=== PATIENT | female | born 1965 | race Caucasian/White ===

== ENCOUNTER → 2022-10-17 | Outpatient (CLI) | payer OTHER | END | disposition home or self-care (01) | LOC: RAH 10:05 | PROVIDERS: ATTEND Nurse Practitioner Family | DX: Z12.31 Encounter for screening mammogram for malignant neoplasm of breast (principal) | CPT/HCPCS: 77067 ==

== ENCOUNTER 2024-04-28 12:21 | Emergency (ER) | payer BC, OTHER ==
[~2024-04-28] VITALS: Ht 157.5 cm; Wt 62.1 kg
[2024-04-28 12:53] VITALS: TEMP 99.3
--- NOTE | 2024-04-28 13:45 | EKG ---
[facility] Test Date: 2024-04-28 Test Time: 13:43:13 Pat Name: TODD FLETCHER Department: ED Room: Gender: F Aged Or Disabled Carer: [id number] : 1965 Requested By: SHANNON BENJAMIN Order Number: [id number] Reading MD: Clifford Mayorga Measurements Intervals [place] Rate: 78 P: 57 NM: 153 QRS: 36 QRSD: 82 T: 49 QT: 378 QTc: 431 Interpretive Statements Sinus rhythm No previous ECG available for comparison Electronically Signed On 04-28-2024 15:10:50 [employer] by Clifford Mayorga Please click the below link to view image of tracing.
[2024-04-28 14:39] LABS: BASOPHILS # (AUTO) 0.04 K/uL (0.00-0.20); BASOPHILS % (AUTO) 0.6 % (0.0-5.0); CREATININE 0.8 mg/dL (0.5-1.0); EOSINOPHILS # (AUTO) 0.03 K/uL (0.00-0.70); EOSINOPHILS % (AUTO) 0.4 % (0.0-8.0); HEMATOCRIT 41.5 % (36-48); IMMATURE GRANULOCYTE ABSOLUTE 0.02 K/uL (0-1); LYMPHOCYTES # (AUTO) 1.7 K/uL (1.0-4.8); MEAN CORPUSCULAR HEMOGLOBIN 29.8 pg (27.0-33.0); MEAN CORPUSCULAR HGB CONC 33.5 g/dL (32.0-36.0); MEAN CORPUSCULAR VOLUME 88.9 fL (79-99); MONOCYTES # (AUTO) 0.6 K/uL (0.1-1.0); NEUTROPHILS # (AUTO) 4.9 K/uL (1.8-7.7); NEUTROPHILS % (AUTO) 67.7 % (40.0-77.0); PLATELET COUNT (AUTO) 285 K/uL (130-400); POTASSIUM 3.4 mmol/L (3.5-5.1); RED BLOOD CELL COUNT(AUTO) 4.67 MIL/uL (4.00-5.50); RED CELL DISTRIBUTION WIDTH 13.5 % (11.0-15.5); WHITE BLOOD COUNT (AUTO) 7.2 K/uL (4.8-10.8)
--- NOTE | 2024-04-28 14:57 | ERN ---
General Chief Complaint: Hypertension Stated Complaint: HIGH BLOOD PRESSURE Time Seen by MD: 12:27 History of Present Illness Initial Comments 59-year-old female, history of TIA, asthma, COPD, dyslipidemia, presents for body aches and hypertension. Patient forgot her flu and RSV vaccines yesterday. She reports that today she feels all-over body aches and chills. She took her blood pressure at a pharmacy was 160/101 problem to go to come here. On arrival here her blood pressure is stable. She appears uncomfortable due to body aches but is otherwise nontoxic. She does report mild cough. Allergies: Coded Allergies: Penicillins (Unverified Allergy, Unknown, 04/28/24) Past Medical History Past Medical History: Anxiety, Depression, GERD Past Surgical History: Appendectomy, Hysterectomy, Other, Surgical History Other: HERNIA ROS Dictation CONSTITUTIONAL: Weakness and body aches EENT: No eye pain, no blurred vision, no tearing, no double vision, no ear pain, no ear discharge, no nose pain, no nasal congestion, no throat pain, no throat swelling, no mouth pain. RESPIRATORY: No cough, no orthopnea, no SOB, no stridor, no wheezing. CARDIOVASCULAR: No chest pain, no edema, no palpitations, no syncope. GASTROINTESTINAL/ABDOMINAL: No abdominal pain, no constipation, no diarrhea, no nausea, no vomiting. GENITOURINARY: No abnormal discharge, no dysuria, no frequent urination, no hematuria. No complaints of pain in the genitals. MUSCULOSKELETAL: No back pain, no gout, no joint pain, no joint swelling, no muscle pain, no muscle stiffness, no neck pain. INTEGUMENTARY: No change in color, no change in hair/nails, no dryness, no lesion, no lumps, no rash. NEUROLOGICAL/PSYCH: No anxiety, not depressed, no emotional problem, no headache, no numbness, no pre-existing deficit, no history of seizures, no tremors, no weakness. HEMATOLOGIC/LYMPHATIC: Not anemic, no history of blood clots, no apparent bleeding, no bruising, glands not swollen. All Systems Negative, Except as Noted. Physical Exam Physical Exam Dictation VITAL SIGNS: Reviewed. GENERAL APPEARANCE: Alert, oriented x3, no acute distress, EYES: PERRL, pink conjunctivas, eyelid no trauma, anterior chamber clear. EARS: Pinnas intact and no signs of trauma or erythema. Ear canals clear and no discharge. TMs no erythema. NOSE: No discharge, no bleeding. OROPHARYNX: Mouth normal, teeth no caries, tongue pink. Pharynx clear, no erythema. Tonsils no exudates, no abscesses noted. Mucous membrane moist. NECK: Supple, non-tender, no thyromegaly, no masses, no JVD, no bruits. BREAST: Deferred. CHEST: No tenderness, no crepitus, no paradoxical movement, no retractions. LUNGS: Clear, well-ventilated, symmetric, no rales, no wheezing, no rhonchi, no stridor, good breath sounds bilaterally. HEART: Regular rate, regular rhythm, no murmur, no gallops. VASCULAR: No peripheral edema. ABDOMEN: Soft, positive bowel sounds, nondistended, no guarding, nontender, no rebound, no masses no hepatomegaly, no splenomegaly, no Vazquez's sign, no hernias. RECTAL: Deferred. GENITAL: Deferred. NEUROLOGICAL: Normal speech, gross motor function intact, gross sensory function intact. MUSCULOSKELETAL: Neck nontender, full range of motion, back nontender, full range of motion. EXTREMITIES: Nontender, full range of motion. SKIN: Color pink, dry, no turgor, no rash, no lacerations, no abrasions, no contusions. LYMPHATICS: Deferred. Results Laboratory and Microbiology Lab and Micro Result Laboratory Tests Test 04/28/24 14:01 White Blood Count 7.2 K/uL (4.8-10.8) Red Blood Count 4.67 MIL/uL (4.00-5.50) Hemoglobin 13.9 g/dL (12.0-16.0) Hematocrit 41.5 % (36-48) Mean Corpuscular Volume 88.9 fL (79-99) Mean Corpuscular Hemoglobin 29.8 pg (27.0-33.0) Mean Corpuscular Hemoglobin Concent 33.5 g/dL (32.0-36.0) Red Cell Distribution Width 13.5 % (11.0-15.5) Platelet Count 285 K/uL (130-400) Mean Platelet Volume 9.5 fL (7.5-10.5) Immature Granulocyte % (Auto) 0.3 % (0-1) Neutrophils (%) (Auto) 67.7 % (40.0-77.0) Lymphocytes (%) (Auto) 23.0 % (21.0-51.0) Monocytes (%) (Auto) 8.0 % (3.0-13.0) Eosinophils (%) (Auto) 0.4 % (0.0-8.0) Basophils (%) (Auto) 0.6 % (0.0-5.0) Neutrophils # (Auto) 4.9 K/uL (1.8-7.7) Lymphocytes # (Auto) 1.7 K/uL (1.0-4.8) Monocytes # (Auto) 0.6 K/uL (0.1-1.0) Eosinophils # (Auto) 0.03 K/uL (0.00-0.70) Basophils # (Auto) 0.04 K/uL (0.00-0.20) Absolute Immature Granulocyte (auto 0.02 K/uL (0-1) Nucleated Red Blood Cells 0.0 % (0.0-0.19) Sodium Level 136 mmol/L (136-145) Potassium Level 3.4 mmol/L (3.5-5.1) L Chloride Level 100 mmol/L (101-111) L Carbon Dioxide Level 28 mmol/L (21-32) Blood Urea Nitrogen 7 mg/dL (7-18) Creatinine 0.8 mg/dL (0.5-1.0) Glomerular Filtration Rate Calc 84 mL/min (>90) Random Glucose 91 mg/dL (70-105) Total Calcium 8.7 mg/dL (8.5-10.1) Total Creatine Kinase 55 U/L (21-232) Troponin I High Sensitivity 4.2 ng/L (4-50) MDM CC: Body aches and discomfort after a vaccine Historian: Patient Comorbidities: COPD, asthma, dyslipidemia Limitations by social determinants of health: None Vital signs: 144/90, otherwise stable. Clinical exam is nontoxic EKG: NSR, rate of78 normal axis good R progression intervals are stable no STEMI. Interpreted by me. Labs (independently interpreted by me): CBC is normal, BNP is normal. Troponin is normal. I suspect that the patient's symptoms are due to a vaccine reaction. I do not see any signs of ACS, PE, significant infection. She has a stable vital signs and a normal white count. This point in time I think it is safe to give the patient a dose of Toradol and Solu-Medrol on DC with the NSAID. I suspect she is having symptoms relating to her recent vaccination. Patient is agreeable to this plan. We will DC. ED Course Orders Procedure Category Date Status Time 12 Lead Ekg Tracing- EKG 04/28/24 Complete Technical 13:20 Cardiac Panel LAB 04/28/24 Complete 13:20 Cbc With Differential LAB 04/28/24 Complete 13:20 Basic Metabolic Panel LAB 04/28/24 Complete 13:20 Ketorolac PHA 04/28/24 Transmitted Tromethamine 15mg/Ml 15:00 Methylprednisolone PHA 04/28/24 Transmitted Succ 40mg (Solu-Medro 15:00 Vital Signs Date Time Temp Pulse Resp B/P (MAP) Pulse Ox O2 Delivery O2 Flow Rate FiO2 04/28/24 12:53 99.3 91 18 144/99 97 Room Air 0 04/28/24 12:53 99.3 91 18 144/99 97 Room Air* 0 21 DX & DISP Disposition: Discharge Departure Impression: Primary Impression: Vaccine reaction Additional Impression: Hypertension Condition: Stable Additional Instructions: Your symptoms are likely related to your recent vaccination. It is normal to get body aches and fever after vaccines. Your blood pressure here was 144/90. This is mildly elevated. You can talk to her primary doctor regarding this. At this point in time I do not think it is a good idea to start a blood pressure medication. Your lab work (CBC, BNP, troponin) is stable. You EKGs normal. You received IM Toradol and IM Solu-Medrol here in the ER. I recommend that you alternate 800 mg of ibuprofen and 1000 mg of Tylenol every 4 hours as needed for body aches. Drink plenty of liquids. Please return to the emergency department if you have any concerns. Referrals: JONEL MORENO (PCP) SHANNON BENJAMIN DO Apr 28, 2024 14:57
[2024-04-28 15:00] VITALS: BP 138/87; PULSE 89; RESP 18; O2SAT 97
[2024-04-28] MEDS: Solu-medROL 40MG VIAL IM ONE (15:02)
[2024-04-28] MEDS: ketOROlac 15MG/ML VIAL (15MG/ML) IM ONE (15:02)
== END 2024-04-28 15:16 | disposition home or self-care (01) ==
LOC: EDH 12:21
DX: I15.8 Other secondary hypertension (principal); T50.B95A Adverse effect of other viral vaccines, initial encounter; E78.5 Hyperlipidemia, unspecified; J44.89 Other specified chronic obstructive pulmonary disease; K21.9 Gastro-esophageal reflux disease without esophagitis; Z86.73 Personal history of transient ischemic attack (TIA), and cerebral infarction without residual deficits; Z88.0 Allergy status to penicillin; Z90.49 Acquired absence of other specified parts of digestive tract; Z90.710 Acquired absence of both cervix and uterus; Z98.890 Other specified postprocedural states; Y92.89 Other specified places as the place of occurrence of the external cause
CPT/HCPCS: 99284; 82550; 84484; 80048; 85025; 36415; 96372 ×2; 93005; J2919; J1885